=== PATIENT | female | born 1990 | race Caucasian/White ===

== ENCOUNTER → 2020-07-25 | Outpatient (CLI) | payer OTHER ==
[~2020-07-25] VITALS: Ht 170.2 cm; Wt 54.4 kg
== END ==
LOC: OPSV 09:00
DX: M31.4 Aortic arch syndrome [Takayasu] (principal)
CPT/HCPCS: 96365; 96366; 96375; J1720; J7050; Q5103

== ENCOUNTER → 2020-08-08 | Outpatient (CLI) | payer OTHER ==
[~2020-08-08] VITALS: Ht 170.2 cm; Wt 68.0 kg
[2020-08-08 12:42] LABS: HEMOGLOBIN 13.5 gm/dl (12.3-15.3); WHITE BLOOD COUNT 7.1 K/UL (4.5-11.0)
[2020-08-08 12:53] LABS: BUN/CREATININE RATIO 10 (0-10)
== END ==
LOC: OPSV 11:00
PROVIDERS: Internal Medicine
DX: M31.4 Aortic arch syndrome [Takayasu] (principal); Z79.899 Other long term (current) drug therapy
CPT/HCPCS: 36415; 80053; 85025; 85652; 86140; 96365; 96366; 96375; J1720; J7050; Q5103

== ENCOUNTER → 2020-08-23 | Outpatient (CLI) | payer OTHER | LOC: EXRD 12:57 | DX: Z79.52 Long term (current) use of systemic steroids (principal) | CPT/HCPCS: 77080 ==

== ENCOUNTER → 2020-09-19 | Outpatient (CLI) | payer OTHER ==
[~2020-09-19] VITALS: Ht 170.2 cm; Wt 68.0 kg
== END ==
LOC: OPSV 11:00
DX: M31.4 Aortic arch syndrome [Takayasu] (principal)
CPT/HCPCS: 96365; 96366; 96375; J1720; J7050; Q5103

== ENCOUNTER → 2020-11-14 | Outpatient (CLI) | payer OTHER ==
[~2020-11-14] VITALS: Ht 170.2 cm; Wt 63.5 kg
== END ==
LOC: OPSV 10:00
DX: M31.4 Aortic arch syndrome [Takayasu] (principal); Z79.899 Other long term (current) drug therapy; Z79.82 Long term (current) use of aspirin; Z79.52 Long term (current) use of systemic steroids
CPT/HCPCS: 96365; 96366; 96375; J1720; J7050; Q5103

== ENCOUNTER → 2020-12-26 | Outpatient (CLI) | payer OTHER ==
[~2020-12-26] VITALS: Ht 170.2 cm; Wt 63.5 kg
== END ==
LOC: OPSV 09:00
DX: M31.4 Aortic arch syndrome [Takayasu] (principal)
CPT/HCPCS: 96365; 96366; 96375; J1720; J7050; Q5103

== ENCOUNTER → 2021-02-06 | Outpatient (CLI) | payer OTHER ==
[~2021-02-06] VITALS: Ht 170.2 cm; Wt 63.5 kg
== END ==
LOC: OPSV 09:00
DX: M31.4 Aortic arch syndrome [Takayasu] (principal)
CPT/HCPCS: 96365; 96366; 96375; J1720; J7050; Q5103

== ENCOUNTER → 2021-03-20 | Outpatient (CLI) | payer OTHER ==
[~2021-03-20] VITALS: Ht 170.2 cm; Wt 63.5 kg
== END ==
LOC: OPSV 09:00
DX: M31.4 Aortic arch syndrome [Takayasu] (principal)
CPT/HCPCS: 96365; 96366; 96375; J1720; J7050; Q5103

== ENCOUNTER → 2021-05-22 | Outpatient (CLI) | payer OTHER ==
[~2021-05-22] VITALS: Ht 170.2 cm; Wt 63.5 kg
== END ==
LOC: OPSV 05-01 09:00
DX: M31.4 Aortic arch syndrome [Takayasu] (principal)
CPT/HCPCS: 96365; 96366; J1720; J7050; Q5103

== ENCOUNTER → 2021-07-03 | Outpatient (CLI) | payer OTHER ==
[~2021-07-03] VITALS: Ht 170.2 cm; Wt 63.5 kg
== END ==
LOC: OPSV 10:00
DX: M31.4 Aortic arch syndrome [Takayasu] (principal)
CPT/HCPCS: 96375; 96413; 96415; J1720; J7050; Q5103